=== PATIENT | female | born 1950 | race Two or more races ===

== ENCOUNTER 2020-05-22 08:11 | Emergency (ER) | payer OTHER ==
[~2020-05-22] VITALS: Ht 162.6 cm; Wt 70.3 kg
[2020-05-22] MEDS ORDERED: ZESTRIL20 MG PO (08:32)
[2020-05-22] MEDS ORDERED: ECOTRIN81 MG PO (08:32)
[2020-05-22] MEDS ORDERED: ATORVASTATIN CA40 MG PO (08:32)
[2020-05-22] MEDS ORDERED: MECLIZINE HCL25 MG PO (11:13)
== END 2020-05-22 13:26 | disposition home or self-care (01) ==
LOC: ER 08:11
DX: B34.9 Viral infection, unspecified (principal); Z03.818 Encounter for observation for suspected exposure to other biological agents ruled out